=== PATIENT | male | born 1990 | race Caucasian/White ===

== ENCOUNTER 2020-05-13 09:28 | Emergency (ER) | payer SELFPAY ==
[~2020-05-13] VITALS: Ht 180.3 cm; Wt 65.8 kg
[2020-05-13 09:38] VITALS: BP 117/76
== END 2020-05-13 10:27 | disposition home or self-care (01) ==
LOC: ER 09:39
DX: M79.645 Pain in left finger(s) (principal); Z98.890 Other specified postprocedural states; W19.XXXA Unspecified fall, initial encounter; Y93.89 Activity, other specified; Y92.89 Other specified places as the place of occurrence of the external cause; Y99.8 Other external cause status
CPT/HCPCS: 73130-TC